=== PATIENT | male | born 1940 | race Caucasian/White ===

== ENCOUNTER 2019-04-21 12:05 | Emergency (ER) | payer MEDICARE, BC ==
[2019-04-21] MEDS ORDERED: cefTRIAXone 2 GM Vial IVPUSH ONE (12:19)
[2019-04-21] MEDS ORDERED: Sodium Chloride 0.9% 1,000 ML IV SCH (12:30)
--- NOTE | 2019-04-21 12:50 | EDM.PDOC ---
ED HPI GENERAL MEDICAL PROBLEM - General Chief Complaint: Lower Extremity Injury/Pain Stated Complaint: FALL Time Seen by Provider: 04/21/19 12:13 Source of Information: Reports: Patient, EMS, Family History Limitations: Reports: No Limitations - History of Present Illness INITIAL COMMENTS - FREE TEXT/NARRATIVE: Patient presents via EMS from [place] with complaints of right ankle pain and swelling. Has history of Rene's Disease and according to his fell yesterday. He refused to let her call for help at that time. They were able to get him in the house and he spent the day in his recliner. Slept in his bed. When he attempted to use the bathroom this morning he was unable to walk and his helped him down to the floor. She then called for help. He denies loss of consciousness, hitting his head yesterday. He denies chest pain , sob, abdominal pain. Does have frequent urination due to BPH. Denies blood in urine or stools. Does have difficulty swallowing but in reviewing [place]a charting he has refused swallow studies. Increase in clonazepam due to chorea. Does have bruising and redness to the right ankle and lower mcallister. Onset Date: 04/20/19 Duration: Getting Worse Location: Reports: Lower Extremity, Right Quality: Reports: Ache Severity: Moderate Improves with: Reports: Cold Therapy Worsens with: Reports: Movement Associated Symptoms: Reports: No Other Symptoms Right Ankle Pain Score (Numeric/FACES): 5 - Related Data Allergies Allergy/AdvReac Type Severity Reaction Status Date / Time Penicillins Allergy Rash Verified 06/17/17 16:19 Home Meds: Home Meds ClonazePAM [KlonoPIN] 0.5 mg BEDTIME 04/21/19 [History] Tamsulosin [Flomax] 0.4 mg DAILY 04/21/19 [History] metFORMIN [Glucophage] 500 mg BID 04/21/19 [History] risperiDONE 2 mg TID 04/21/19 [History] Past Medical History Neurological History: Reports: Other (See Below) Other Neuro History: rene's - Past Surgical History Musculoskeletal Surgical History: Reports: Other (See Below) Review of Systems - Review of Systems Review Of Systems: See Below Constitutional: Reports: No Symptoms Eyes: Reports: No Symptoms Ears: Reports: No Symptoms Nose: Reports: No Symptoms Mouth/Throat: Reports: No Symptoms Respiratory: Reports: No Symptoms Cardiovascular: Reports: No Symptoms GI/Abdominal: Reports: No Symptoms Genitourinary: Reports: No Symptoms Musculoskeletal: Reports: Leg Pain, Foot Pain Skin: Reports: Bruising, Erythema, Change in Color Neurological: Reports: No Symptoms Psychiatric: Reports: No Symptoms ED EXAM, GENERAL - Physical Exam Exam: See Below Exam Limited By: No Limitations General Appearance: Alert, WD/WN, No Apparent Distress Eye Exam: Bilateral Eye: EOMI, Normal Inspection Ears: Normal TMs Nose: Normal Inspection, Normal Mucosa, No Blood Throat/Mouth: Normal Lips, Normal Teeth, Normal Gums, Normal Oropharynx, Normal Voice, No Airway Compromise, Other (oral mucosa dry) Head: Atraumatic, Normocephalic Neck: Normal Inspection, Supple, Non-Tender, Full Range of Motion Respiratory/Chest: No Respiratory Distress, Lungs Clear, Normal Breath Sounds, No Accessory Muscle Use, Chest Non-Tender Cardiovascular: Normal Peripheral Pulses, Regular Rate, Rhythm, No Edema, No Gallop, No JVD, No Murmur, No Rub Peripheral Pulses: 2+: Posterior Tibial (L), Posterior Tibial (R), Dorsalis Pedis (L), Dorsalis Pedis (R) GI/Abdominal: Normal Bowel Sounds, Soft, Non-Tender, No Organomegaly, No Distention, No Abnormal Bruit, No Mass Back Exam: Normal Inspection, Full Range of Motion, NT Extremities: Normal Inspection, Normal Range of Motion, Non-Tender, Normal Capillary Refill, No Pedal Edema Neurological: Alert, Oriented, Abnormal Reflexes, Sensory/Motor Deficit, Other ( [place]'s disease, extrapyramidal movements) Psychiatric: Normal Affect Skin Exam: Ecchymosis, Erythema, Increased Warmth, Wound/Incision (right ankle has redness, swelling, blistering, bruising to posterior ankle. Abrasions to bilateral knees and elbows) ED TRAUMA EXTREMITY PROCEDURES - Splinting Right Lower Extremity Splint Site: right ankle Pre-Procedure NV Status: Normal Post-Procedure NV Status: Normal Splint Material: Air Splint Splint Design: Stirrup Applied & Form Fitted By: Provider, Nurse Provider Post-Splint Application NV Check: NV Status Normal, Good Position Complications: No EKG INTERPRETATION EKG Date: 04/21/19 Time: 12:56 Rhythm: NSR Rate (Beats/Min): 99 [place]: Normal P-Wave: Present QRS: RBBB ST-T: Normal QT: Normal Comparison: Change From Previous EKG (prior ekg was sinus tach with RBBB) EKG Interpretation Comments: sinus rhythm RBBB Course - Vital Signs Last Recorded V/S: Last Vital Signs Temp 37.0 C 04/21/19 12:05 Pulse 98 04/21/19 12:05 Resp 16 04/21/19 12:05 BP 145/74 H 04/21/19 12:05 Pulse Ox 96 04/21/19 12:05 - Orders/Labs/Meds Orders: Active Orders 24 hr Category Date Time Status EKG 12 Lead [EKG Documentation Completion] [RC] STAT Care 04/21/19 12:19 Active CULTURE BLOOD [BC] Stat Lab 04/21/19 12:39 Received CULTURE BLOOD [BC] Stat Lab 04/21/19 12:52 Received CULTURE WOUND + SMEAR [RM] Stat Lab 04/21/19 12:50 Results UA W/MICROSCOPIC [URIN] Stat Lab 04/21/19 12:14 Ordered Sodium Chloride 0.9% [Normal Saline] 1,000 ml Med 04/21/19 12:30 Active IV ASDIRECTED Blood Culture x2 Reflex Set [OM.PC] Stat Oth 04/21/19 12:25 Ordered Medication Orders Sodium Chloride (Normal Saline) 1,000 mls @ 999 mls/hr IV ASDIRECTED JEN Last Admin: 04/21/19 12:45 Dose: 999 mls/hr Labs: Laboratory Tests 04/21/19 04/21/19 04/21/19 Range/Units 12:39 12:39 12:39 WBC 8.6 (4.0-10.0) x10^3/uL RBC 4.31 L (4.5-6.0) x10^6/uL Hgb 14.2 (14.0-18.0) g/dL Hct 41.4 (40.0-52.0) % MCV 96.1 H (78.0-93.0) fL MCH 32.9 H (26.0-32.0) pg MCHC 34.3 (32.0-36.0) g/dL RDW Coeff of Jf 12.5 (10.0-15.0) % Plt Count 214 (130-400) x10^3/uL Neut % (Auto) 75.9 (50.0-80.0) % Lymph % (Auto) 10.1 L (25.0-50.0) % [place] % (Auto) 13.6 H (2.0-11.0) % Eos % (Auto) 0.1 (0.0-4.0) % Baso % (Auto) 0.3 (0.2-1.2) % Sodium 138 (136-145) mmol/L Potassium 4.4 (3.5-5.1) mmol/L Chloride 104 (98-107) mmol/L Carbon Dioxide 27 (21-32) mmol/L Anion Gap 11.4 (10-20) mmol/L BUN 17 (7-18) mg/dL Creatinine 1.1 (0.70-1.30) mg/dL Est Cr Clr Drug Dosing TNP Estimated GFR (MDRD) > 60 Glucose 207 H (74-106) mg/dL Lactic Acid 2.5 H* (0.4-2.0) mmol/L Calcium 8.5 (8.5-10.1) mg/dL Corrected Calcium 9.14 (8.5-10.1) mg/dL Magnesium 1.6 L (1.8-2.4) mg/dL Total Bilirubin 0.8 (0.2-1.0) mg/dL AST 29 (15-37) U/L ALT 29 (16-63) U/L Alkaline Phosphatase 72 (46-116) U/L Creatine Kinase 972 H* (39-308) U/L Troponin I 0.021 (<=0.056) ng/mL C-Reactive Protein 5.7 H (<=0.9) mg/dL NT-Pro-B Natriuret Pep 237 (<=450) pg/mL Total Protein 6.9 (6.4-8.2) g/dL Albumin 3.2 L (3.4-5.0) g/dL Globulin 3.7 Albumin/Globulin Ratio 0.86 TSH, Ultra Sensitive 1.621 (0.358-3.74) uIU/mL Meds: Medications Generic Name Dose Route Start Last Admin Trade Name Freq PRN Reason Stop Dose Admin Sodium Chloride 1,000 mls @ 999 mls/hr 04/21/19 12:30 04/21/19 12:45 Normal Saline IV 999 mls/hr ASDIRECTED JEN Administration Discontinued Medications Generic Name Dose Route Start Last Admin Trade Name Fredrick PRN Reason Stop Dose Admin Ceftriaxone Sodium 2 gm 04/21/19 12:19 04/21/19 12:50 Rocephin IVPUSH 04/21/19 12:20 2 gm STAT ONE Administration Morphine Sulfate 2 mg 04/21/19 15:11 04/21/19 15:20 Morphine IVPUSH 04/21/19 15:12 2 mg ONETIME ONE Administration - Radiology Interpretation Free Text/Narrative:: x-ray shows acute bimalleolar fracture subluxation Departure - Departure Time of Disposition: 15:33 Disposition: DC/Tfer to Acute Hospital 02 Condition: Fair Clinical Impression: Bimalleolar fracture of right ankle Qualifiers: Encounter type: initial encounter Fracture type: closed Qualified Code(s): S82.841A - Displaced bimalleolar fracture of right lower leg, initial encounter for closed fracture - Discharge Information *PRESCRIPTION DRUG MONITORING PROGRAM REVIEWED*: No *COPY OF PRESCRIPTION DRUG MONITORING REPORT IN PATIENT TAMEKA: No Referrals: Ellen Shelley MD [Primary Care Provider] - Forms: ED Department Discharge, Interfacility Transfer [facility] ED Communication - ED Communication Date/Time Date: 04/21/19 Time Called: 14:23 - Discussed Case With (1) Discussed Case With (1): Admitting Provider (Dr. [facility] with [facility] was given report. Dr. Shah with podiatry also contacted and discussed stirrup splint. Appropriate. Likely will have fixation surgery tomorrow.) - Problem List & Annotations (1) Bimalleolar fracture of right ankle SNOMED Code(s): 317365884 Code(s): S82.841A - DISPLACED BIMALLEOLAR FRACTURE OF RIGHT LOWER LEG, INIT Status: Acute Priority: Medium Current Visit: Yes Qualifiers: Encounter type: initial encounter Fracture type: closed Qualified Code(s) : S82.841A - Displaced bimalleolar fracture of right lower leg, initial encounter for closed fracture - Problem List Review Problem List Initiated/Reviewed/Updated: Yes - My Orders Last 24 Hours: My Active Orders 04/21/19 12:14 UA W/MICROSCOPIC [URIN] Stat 04/21/19 12:19 EKG 12 Lead [EKG Documentation Completion] [RC] STAT 04/21/19 12:25 Blood Culture x2 Reflex Set [OM.PC] Stat 04/21/19 12:30 Sodium Chloride 0.9% [Normal Saline] 1,000 ml IV ASDIRECTED 04/21/19 12:39 CULTURE BLOOD [BC] Stat 04/21/19 12:50 CULTURE WOUND + SMEAR [RM] Stat 04/21/19 12:52 CULTURE BLOOD [BC] Stat - Assessment/Plan Last 24 Hours: My Active Orders 04/21/19 12:14 UA W/MICROSCOPIC [URIN] Stat 04/21/19 12:19 EKG 12 Lead [EKG Documentation Completion] [RC] STAT 04/21/19 12:25 Blood Culture x2 Reflex Set [OM.PC] Stat 04/21/19 12:30 Sodium Chloride 0.9% [Normal Saline] 1,000 ml IV ASDIRECTED 04/21/19 12:39 CULTURE BLOOD [BC] Stat 04/21/19 12:50 CULTURE WOUND + SMEAR [RM] Stat 04/21/19 12:52 CULTURE BLOOD [BC] Stat Assessment:: right ankle bimalleolar fracture
--- NOTE | 2019-04-21 12:59 | CR ---
[id number] RAD/RAD Ankle Right 3V Min EXAM: RIGHT ANKLE 3 VIEWS INDICATION: Fall. COMPARISON: None. DISCUSSION: There is an acute oblique distal fibula fracture with up to 12 mm posterior lateral displacement. Acute mildly distracted and displaced medial malleolus fracture. Slight posterior subluxation of the talus. Mild enthesopathy at the Achilles attachment on the calcaneus. Soft tissue swelling throughout the imaged leg and ankle. IMPRESSION: 1. Acute bimalleolar fracture subluxation. Robert Paredes MD 04/21/19 [id number] Thank you for allowing us to participate in the care of your patient.
[2019-04-21 13:42] LABS: CHLORIDE,CL 104 mmol/L (98-107); SODIUM,NA 138 mmol/L (136-145)
[2019-04-21 13:43] LABS: ANION GAP 11.4 mmol/L (10-20)
[2019-04-21 14:01] VITALS: BP 145/74; PULSE 98
[2019-04-21] MEDS ORDERED: Morphine 2 MG/ML Syringe IVPUSH ONE (15:11)
== END 2019-04-21 15:33 | disposition short-term general hospital (02) ==
LOC: VM.ED 12:05
DX: S82.841A Displaced bimalleolar fracture of right lower leg, initial encounter for closed fracture (principal); Z88.0 Allergy status to penicillin; Z79.899 Other long term (current) drug therapy; W18.39XA Other fall on same level, initial encounter
CPT/HCPCS: 36415; 73610; 80053; 82550; 83605; 83735; 83880; 84443; 84484; 85025; 86140; 87040; 87070; 87205; 93005; 93010; 96361; 96374; 99284; 99285; J0696; J2270; J7030

== ENCOUNTER 2021-08-01 12:42 | Observation (INO) | payer MEDICARE, BC ==
[2021-08-01] MEDS ORDERED: Docusate Sodium 100 MG Cap PO PRN (13:35)
[2021-08-01] MEDS ORDERED: Acetaminophen 325 MG Tab PO PRN (13:35)
[2021-08-01] MEDS ORDERED: Ondansetron 4 MG Tab.DIS PO PRN (13:38)
[2021-08-01] MEDS ORDERED: Sodium Chloride 0.9% 1,000 ML IV SCH (13:45)
[2021-08-01] MEDS ORDERED: Sodium Chloride 0.9% 10 ML Syringe FLUSH PRN (13:45)
[2021-08-01 14:26] LABS: CHLORIDE,CL 108 mmol/L (98-107); SODIUM,NA 143 mmol/L (136-145)
[2021-08-01 14:27] LABS: ANION GAP 13.2 mmol/L (5-15)
--- NOTE | 2021-08-01 16:11 | CR ---
[id number] RAD/RAD Chest PA or AP 1V EXAM: RAD Chest PA or AP 1V INDICATION: LEUKOCYTOSIS. COMPARISON: None. DISCUSSION: Cardiomediastinal silhouette is normal in size and contour. No infiltrate, effusion, pneumothorax, or edema. Left basilar subsegmental atelectasis and/or scarring. IMPRESSION: No acute cardiopulmonary abnormality. Pedro Pablo Leyva DO 08/01/21 5724 Thank you for allowing us to participate in the care of your patient.
[2021-08-01] MEDS: risperiDONE 1 MG Tab PO SCH (19:55)
[2021-08-01] MEDS: ClonazePAM 0.5 MG Tab PO SCH (19:57)
[2021-08-01] MEDS ORDERED: Cyanocobalamin (Vitamin B12) 1,000 MCG/ML SDV IM ONE (22:45)
--- NOTE | 2021-08-02 00:12 | HP ---
CHIEF COMPLAINT: Weakness. 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 She cannot even remember which leg was weak, but states they have both been weak off and on and his breathing was heavier and his chest was going up and down, but improved, but still felt he needed to be evaluated. Blood sugar 147; he does have diabetes. He was eating and drinking okay, taking his medications as ordered, having no problems with voiding. His just felt overwhelmed and exhausted and could not care for him any more and was requesting he be admitted to [facility] for evaluation and possible jail placement. The patient states she cannot transfer him herself; therefore, ambulance was called. He recently was diagnosed with low B12 and started on oral B12, level was 170. He is on metformin. He has not had any fever or chills. No cough. The patient himself does not answer many questions. He does sort of shake his head yes or no. He did not appear to have any behaviors. They had actually just saw Neurology and they were talking about excessive daytime sleepiness, but improved with Klonopin adjustments; having choreas, on Risperdal; and swallowing problems with plan for esophagram, but the patient declined. He is supposed to be on thickened liquids. Also had other lab at that appointment with Dr. Shelley; blood sugar was 286, A1c 7.3, thyroid normal, kidney function normal. ALLERGIES: His allergy list includes penicillin. MEDICATIONS: Include: Klonopin 0.25 at 7 a.m., 0.5 at 1 p.m., and 0.5 at bedtime; Risperdal 1.5 mg 3 times a day; B12 1000 mcg daily started on 07/17; Colace 100 mg as needed for constipation; simvastatin 10 mg at bedtime; Flomax 0.4 daily; metformin 850 b.i.d.; MiraLAX daily; and Tylenol as needed. 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 PAST SURGICAL HISTORY: Surgically, the patient has had right ankle fracture and ORIF that was in 2019; he spent some time in the jail after that. He had a back surgery in 1985 for L5 with sciatica. FAMILY HISTORY: Both parents are . His mother had dementia. Father had Alfonso's. He does have a brother who is with Crittenden's. He has a sister who had Crittenden's. SOCIAL HISTORY: He is a retired joshi. He is , 4 children. Nonsmoking, nondrinking. is present for the exam. REVIEW OF SYSTEMS: Really unobtainable from the patient. Looks like he has lost about 7 pounds from a year ago. PHYSICAL EXAMINATION: Vital Signs: When he arrived to [facility], the ambulance brought him up as a direct admit to the floor. He actually had a temperature of 101.0, pulse 118, blood pressure 155/104, respiratory rate is 17, O2 of 93 on room air. General: He was in no acute distress. Heart: Regular rate and rhythm, S1 and S2, without murmur. Lungs: Sounds are clear to auscultation bilaterally without crackles or wheezes. Abdomen: Positive bowel sounds. Soft, nontender. Extremities: Warm and dry. No edema. NO deformity reports he was walking prior to coming in so we didn't think he fractured his hip or pelvis Mental Status: He is not able to answer orientation questions. LABS AND IMAGING: Chest x-ray did not show any pneumonia. Urine return did not show UTI. White count 12.9, hemoglobin 13.9, platelets 211. Sodium 143, potassium 4.2, chloride 108, bicarb 26, BUN 16, creatinine 1.1, glucose 170, calcium 8.6. Bilirubin, ALT, AST normal. CK normal. CRP pending. Albumin 3.1. COVID testing negative. ASSESSMENT: 1. Fever and mild leukocytosis. The patient was not initially given antibiotics as there was no source of infection identified. Procalcitonin and lactic acid will be done. Overall, the patient's fever has resolved and he is doing quite well. It is suspected his fever may be from his recent COVID vaccine as he does not fit a sepsis picture. Blood cultures taken. 2. Weakness with underlying Alfonso's. We will get him assessed by PT. We will try to get him up and moving with the walker again. 3. Type 2 diabetes. He is on metformin. We will hold that. We will give him insulin if needed. 4. B12 deficiency, severe. I will place him on IM B12 1000 mcg daily for 4 days then resume oral. 5. Restless legs. He will be on his Klonopin. 6. BPH. He is on his Flomax. We will do a bladder scan and straight cath if needed for the UA. PLAN: The patient is admitted for observation to undergo further workup to see if he meets criteria for acute care. No antibiotics were given. Therapy has been ordered along with a social security specialist consult. He is a code level 3. For DVT prophylaxis, I have placed him on Lovenox. He will be given IV fluids. MKA: 08/01/2021 20:37:47 MODL: 08/02/2021 00:06:21 /[id number] MTDD
[2021-08-02] MEDS: ClonazePAM 0.5 MG Tab PO SCH ×3 (07:04→20:00)
[2021-08-02] MEDS ORDERED: Polyethylene Glycol 3350 Powder 17 GM Packet PO SCH (08:00)
[2021-08-02 08:05] LABS: CHLORIDE,CL 108 mmol/L (98-107); SODIUM,NA 141 mmol/L (136-145)
[2021-08-02] MEDS: risperiDONE 1 MG Tab PO SCH ×3 (08:12→20:00)
[2021-08-02] MEDS: Cyanocobalamin (Vitamin B12) 1,000 MCG Tab PO SCH (08:16)
[2021-08-02] MEDS: Tamsulosin 0.4 MG Cap.ER PO SCH (08:16)
[2021-08-02] MEDS: Enoxaparin 40 MG/0.4 ML Syringe SUBCUT SCH (08:17)
--- NOTE | 2021-08-02 10:39 | PN ---
Progress Note for JORGE SCHROEDER Date: 08/02/2021 Room #: VM.204 SUBJECTIVE: This is hospital day #2 on an 81-year-old admitted for observation yesterday due to weakness after the COVID vaccine 2 days prior. He did have a mildly elevated white count and fever, but no source of infection was found. His procalcitonin and lactic acid were normal. He is normally on metformin for diabetes, which has been held but blood sugars up to 175 today. He has not had any stomach pain, nausea, or vomiting. He did have a bowel movement last night. He denies any pain. He did fall at home, but there were no concerning injuries. He has not been out of bed yet as physical therapy did not see him yesterday. He is not having any trouble with breathing. He is eating 100% of his meals. There have been no behaviors. OBJECTIVE: Vital Signs: His weight is 101.5 kg, temperature 97.7, pulse 86, blood pressure 128/81, respiratory rate 16, and O2 of 97% on room air. General: He is in no acute distress. Heart: Regular rate and rhythm. S1, S2 without murmur. Lungs: Lung sounds are clear to auscultation bilaterally without crackles or wheezes. Abdomen: Positive bowel sounds. It is soft, nontender. Extremities: Warm and dry. No edema. Mental Status: He is alert. He is able to answer questions yes or no. He was not able to answer what he ate for breakfast but as I was finishing his questions, he said are we going anywhere today. LABORATORY DATA: Lab work today white count 7.3, hemoglobin 13.3, and platelets 193. Sodium 141, potassium 4, chloride 108, bicarbonate 25, BUN 14, creatinine 0.9, glucose 175, and calcium 8.2, corrected calcium was normal yesterday as albumin was 3.1. UA did not show any infection. He did have 250 of glucose. ASSESSMENT: 1. Weakness with underlying [place] and recent COVID vaccine, fever likely related to that as no infection was found. 2. Fever and leukocytosis. Did not meet criteria for sepsis as no infection was identified and patient was actually inadvertently a direct admit to the floor, so did not get an ER workup, however, had a UA, chest x-ray, and blood cultures. 3. Type 2 diabetes with hyperglycemia. We will restart his metformin. 4. B12 deficiency, severe. He will get IM B12 today and for a 3 day course and then continue on oral. 5. Restless legs. He is on Klonopin. 6. BPH. He is on Flomax. 7. [place] disease. He is continuing his home medications. PLAN: The patient will continue on observation. We will try to get him up and transferred into the chair today. If that goes well, we can even consider walking if his walker is available. Ideally, if he is able to return home with his , otherwise, we will need to transition over to self-pay swing and look for long-term care. For DVT prophylaxis, he is on Lovenox. We will stop his IV fluids. MKA: 08/02/2021 09:48:58 MODL: 08/02/2021 10:31:15 /[id number]
[2021-08-02] MEDS: Cyanocobalamin (Vitamin B12) 1,000 MCG/ML SDV IM SCH (11:50)
[2021-08-02] MEDS: Loperamide 2 MG Cap PO PRN (18:56)
[2021-08-02] MEDS ORDERED: Simvastatin 10 MG Tab PO SCH (20:00)
[2021-08-03] MEDS: ClonazePAM 0.5 MG Tab PO SCH ×2 (06:38→12:40)
[2021-08-03] MEDS: Cyanocobalamin (Vitamin B12) 1,000 MCG Tab PO SCH (08:30)
[2021-08-03] MEDS: Tamsulosin 0.4 MG Cap.ER PO SCH (08:30)
[2021-08-03] MEDS: risperiDONE 1 MG Tab PO SCH ×2 (08:30→12:39)
[2021-08-03] MEDS: Cyanocobalamin (Vitamin B12) 1,000 MCG/ML SDV IM SCH (08:34)
[2021-08-03] MEDS: Enoxaparin 40 MG/0.4 ML Syringe SUBCUT SCH (08:34)
[2021-08-03] MEDS: Loperamide 2 MG Cap PO PRN (10:29)
[2021-08-03 10:32] VITALS: BP 147/78; PULSE 100
--- NOTE | 2021-08-03 12:19 | DISCH ---
PRIMARY DISCHARGE DIAGNOSES: 1. Generalized weakness following the third dose of Moderna vaccine 2 days prior to admission. 2. Underlying Grundy's disease. 3. Fever and leukocytosis, but no infection found, did not meet criteria for sepsis. It was felt that the fever was related to the vaccine. 4. Type 2 diabetes with hyperglycemia while off metformin, it was restarted. 5. Severe B12 deficiency, did get IM B12. 6. Restless legs syndrome. 7. Benign prostatic hyperplasia. REASON FOR ADMISSION: On the date of admission, this 81-year-old male was brought in by ambulance as he had a fall at home. His legs were weak, both of them over the last few days per his . He did not have any major injury with the fall. No head injury. He was able to put weight on himself, so we did not think anything was broken, but she did report a very high pain tolerance. He had not been having any nausea, vomiting, or diarrhea. He does take laxatives at home. His procalcitonin and lactic acid were normal. His white count was mildly elevated up to 12.9. No antibiotics were given. He just got some IV fluids and it normalized by the next day. His UA was completely normal. His chest x-ray did not show any infection. His COVID test was negative. He had an uneventful hospital course. He did have a post void residual about 450, did require straight cath for the UA due to incontinence. He had 3 loose bowel movements over the course of over 24 hours, did get Imodium after the second and third BM. Therefore, his laxatives were held. He had not been recently on any antibiotics. He had the metformin restarted prior to having the diarrhea. He was continued on all his home medications with Klonopin and Risperdal. He had no significant behaviors, other than when he was wet or soiled, he would become a little agitated and want to get out of bed, but per nursing, he was easily redirected. OBJECTIVE: Vital Signs: On discharge, his weight 101.6 kg. His temp 98, pulse 100, blood pressure 147/78, respiratory rate 14, and O2 of 94% on room air. General: He is in no acute distress. Heart: Regular rate and rhythm. S1, S2 without murmur. Lungs: Lung sounds are clear to auscultation bilaterally without crackles or wheezes. Abdomen: Nondistended, nontender. Positive bowel sounds. Extremities: Warm and dry. He is moving his legs equally. He can flex at the hip. Mental Status: He is alert, but he is not able to answer orientation questions, but he does answer some things with yes or no. He seemed to understand that he would need to stay here for another couple of days. DISCHARGE PLANS AND INSTRUCTIONS: He is going over to swing bed. I did update his that he did not have a qualifying acute care stay. She would like to discuss further with the social science teacher as they do have long-term care insurance and does feel that it is time for him to transition back to the [facility] or [facility] where he has spent time for both in the past. The patient did get up to transfer to the commode with 2 nurses, but given his large size, it was not felt that he could safely walk and his walker will be brought in by the nurse, so he can work with therapy for that. MKA: 08/03/2021 11:39:28 MODL: 08/03/2021 12:09:29 /[id number]
== END 2021-08-03 13:50 | disposition swing bed (61) ==
LOC: VM.MS 12:42 → UNDOADMIN 12:42 → VM.MS 13:00 → UNDODISIN 08-03 13:50
PROVIDERS: ADMIT Internal Medicine; ATTEND Internal Medicine
DX: R53.1 Weakness (principal); R50.9 Fever, unspecified; D72.829 Elevated white blood cell count, unspecified; G10 Huntington's disease; E53.8 Deficiency of other specified B group vitamins; E11.42 Type 2 diabetes mellitus with diabetic polyneuropathy; G25.81 Restless legs syndrome; N40.0 Benign prostatic hyperplasia without lower urinary tract symptoms; Z79.4 Long term (current) use of insulin; Z88.0 Allergy status to penicillin; Z79.899 Other long term (current) drug therapy
CPT/HCPCS: 36415; 51798; 71045; 80048; 80053; 81001; 82550; 82947; 83605; 84145; 85025; 85652; 86140; 87040; A9270-GY; J1650; J3420; J7030; U0002

== ENCOUNTER 2021-08-03 11:14 | Inpatient (IN) | payer MEDICARE, BC ==
[2021-08-03] MEDS ORDERED: Docusate Sodium 100 MG Cap PO PRN (11:22)
[2021-08-03] MEDS ORDERED: Ondansetron 4 MG Tab.DIS PO PRN (11:22)
[2021-08-03] MEDS ORDERED: Loperamide 2 MG Cap PO PRN (11:22)
[2021-08-03] MEDS: CLONAZEPAM 0.5 MG PO SCH ×2 (18:14→20:08)
[2021-08-03] MEDS: RISPERIDONE 1 MG PO SCH ×2 (18:14→20:09)
[2021-08-03] MEDS: METFORMIN 850 MG PO SCH (20:09)
[2021-08-03] MEDS: Simvastatin 10 MG Tab **OWN MED PO SCH (20:11)
[2021-08-04] MEDS: CLONAZEPAM 0.5 MG PO SCH ×3 (06:34→19:36)
[2021-08-04] MEDS: CYANOCOBALAMIN 1000 MCG PO SCH (08:53)
[2021-08-04] MEDS: Acetaminophen 325 MG Tab PO PRN (08:53)
[2021-08-04] MEDS: glipiZIDE 5 MG Tab.ER PO SCH (08:54)
[2021-08-04] MEDS: RISPERIDONE 1 MG PO SCH ×3 (08:55→19:37)
[2021-08-04] MEDS: Tamsulosin 0.4 MG Cap.ER **OWN MED PO SCH (08:56)
[2021-08-04] MEDS: METFORMIN 850 MG PO SCH ×2 (08:57→19:36)
[2021-08-04] MEDS: Simvastatin 10 MG Tab **OWN MED PO SCH (19:36)
[2021-08-05] MEDS: CLONAZEPAM 0.5 MG PO SCH ×3 (06:10→12:15)
[2021-08-05 06:48] VITALS: BP 123/66; PULSE 101
[2021-08-05] MEDS: Tamsulosin 0.4 MG Cap.ER **OWN MED PO SCH (07:53)
[2021-08-05] MEDS: METFORMIN 850 MG PO SCH (07:53)
[2021-08-05] MEDS: glipiZIDE 5 MG Tab.ER PO SCH (07:54)
[2021-08-05] MEDS: Acetaminophen 325 MG Tab PO PRN (07:54)
[2021-08-05] MEDS: CYANOCOBALAMIN 1000 MCG PO SCH (07:56)
[2021-08-05] MEDS: RISPERIDONE 1 MG PO SCH ×2 (07:56→11:29)
--- NOTE | 2021-08-05 09:58 | PN ---
Progress Note for JORGE SCHROEDER Date: 08/05/2021 Room #: VM.204 SUBJECTIVE: The patient has still been noted to be weak and apparently a fpc bed has opened up at [place] for family to take. The patient due to his dysphagia does not say much in terms of comments. He still is feeling weak. OBJECTIVE: Vital Signs: His temperature is 35.8, pulse is 101, blood pressure is 123/66, sats are 90%, respiratory rate is 20. General: The patient is alert. Heart: Regular rate. Lungs: Clear. Abdomen: Soft. Extremities: He is somewhat weak with moving his extremities, but does respond and acknowledge who I am. IMPRESSION: 1. Weakness secondary to coronavirus disease vaccine. 2. Assaria's chorea. 3. Type 2 diabetes mellitus. 4. Vitamin B12 deficiency. 5. Restless legs syndrome. 6. Benign prostatic hyperplasia. PLAN: We will make arrangements for patient to go to [facility]. I will be the one to manage his care there. GM08/05/2021 09:37:57 MODL: 08/05/2021 09:53:44 /[id number]
--- NOTE | 2021-08-05 23:44 | DISCH ---
PRIMARY DIAGNOSES: 1. Weakness secondary to Moderna vaccination. 2. Fever secondary to Moderna vaccine. 3. Woodruff's disease. 4. Type 2 diabetes mellitus. 5. Vitamin B12 deficiency. 6. Restless legs syndrome. 7. BPH. 8. Dysphasia. SUMMARY OF ADMIT HISTORY AND PHYSICAL: The patient was admitted to acute care on 08/01/2021 until 08/03/2021 with weakness related to COVID vaccine with fever. His was unable to care for him at home any longer due to his Alfonso's chorea and large size with difficulty with transfers. The patient was then placed on swing on 08/03/2021 and need for permanent placement. SUMMARY OF SWING BED COURSE: The patient was seen by Nurse Assessor and arrangements were made for correction care on 08/03/2021. No lab work was done while he was on swing bed other than watching his blood sugars, which stayed between 130s and 230s. His vital signs while he was on swing bed were stable. Blood pressure was 123/66. Sats were down to 90%. MEDICATIONS: His medications at the time of transfer will be: Acetaminophen 650 q.4 hours p.r.n., Klonopin 0.25 mg 1 p.o. b.i.d., Klonopin 0.5 mg at bedtime, vitamin B12 1000 mcg p.o. daily, vitamin B 75896 mcg IM q.7 days for 1 month, docusate 100 mg 1 pill daily p.r.n. constipation, glipizide XL 5 mg 1 pill daily, Imodium 2 mg q.i.d. p.r.n., metformin 850 b.i.d., Zofran 4 mg p.o. q.4 hours p.r.n. nausea, Risperdal 1.5 mg t.i.d., Zocor 10 mg at bedtime, Flomax 0.4 mg daily. ALLERGIES: None known. The patient's code level status is do not resuscitate. The patient's diet has been [place] Diabetic diet. The patient would benefit by PT and OT services. GM08/05/2021 09:41:02 MODL: 08/05/2021 23:41:19 /[id number] [facility]
[2021-08-08] MEDS ORDERED: Cyanocobalamin (Vitamin B12) 1,000 MCG/ML SDV IM SCH (12:15)
== END 2021-08-05 12:43 | DRG 948 ==
LOC: VM.MS 13:50
PROVIDERS: ADMIT Internal Medicine; ATTEND Family Medicine
DX: R53.1 Weakness (principal); G10 Huntington's disease; T50.B95A Adverse effect of other viral vaccines, initial encounter; R50.83 Postvaccination fever; G25.81 Restless legs syndrome; E53.8 Deficiency of other specified B group vitamins; R47.02 Dysphasia; Z20.822 Contact with and (suspected) exposure to COVID-19
CPT/HCPCS: 82947; 97162-GP; 97165-GO; A9270-GY; U0002